=== PATIENT | male | born 1995 | race Two or more races ===

== ENCOUNTER 2018-07-06 07:44 | Emergency (ER) | payer SELFPAY ==
[~2018-07-06] VITALS: Ht 172.7 cm; Wt 75.0 kg
[2018-07-06 07:47] VITALS: BP 115/72
== END 2018-07-06 09:37 | disposition left against medical advice (07) ==
LOC: ER 07:44
DX: Z53.21 Procedure and treatment not carried out due to patient leaving prior to being seen by health care provider (principal)